=== PATIENT | female | born 1960 | race Two or more races ===

== ENCOUNTER 2024-06-29 12:47 | Emergency (ER) | payer OTHER ==
[~2024-06-29] VITALS: Ht 154.9 cm; Wt 63.5 kg
[2024-06-29] MEDS ORDERED: FAMOTIDINE/PF INJ 20 MG/2 ML VIAL IV ONE (14:44)
[2024-06-29] MEDS ORDERED: MAG HYDROX/AL HYDROX/SIMETH 30 ML UDC ONE (14:44)
[2024-06-29] MEDS ORDERED: KETOROLAC TROMETHAMINE 15 MG/ML VIAL ONE (14:44)
[2024-06-29] MEDS ORDERED: LIDOCAINE VISCOUS 2% UD 15 ML UDC ONE (14:45)
[2024-06-29 14:50] LABS: BASOPHILS % (AUTO) 0.4 % (0.0-2.0); HEMATOCRIT 35 % (33-45); HEMOGLOBIN 12.1 g/dL (11.5-14.8); LYMPHOCYTES # (AUTO) 1.3 K/uL (0.8-4.8); LYMPHOCYTES % (AUTO) 12.9 % (20.0-44.0); MEAN CORPUSCULAR HEMOGLOBIN 31 PG (26.0-33.0); MEAN CORPUSCULAR HGB CONC 34 g/dl (31.0-36.0); MEAN CORPUSCULAR VOLUME 91 fL (82-100); MONOCYTES # (AUTO) 0.7 K/uL (0.1-1.30); MONOCYTES % (AUTO) 6.9 % (2.0-12.0); NEUTROPHILS # (AUTO) 7.8 K/uL (1.8-8.9); NEUTROPHILS % (AUTO) 79.8 % (43.0-81.0); PLATELET COUNT (AUTO) 313 K/uL (150-450); RED BLOOD CELL COUNT(AUTO) 3.91 MIL/uL (4.0-5.2); RED CELL DISTRIBUTION WIDTH 13.5 % (11.5-15.0); WHITE BLOOD COUNT (AUTO) 9.8 K/uL (4.3-11.0)
[2024-06-29] MEDS: IV NS 0.9% 1,000 ML BAG IV ONE (14:57)
[2024-06-29] MEDS: FAMOTIDINE/PF INJ 20 MG/2 ML VIAL IV ONE (14:57)
[2024-06-29] MEDS: KETOROLAC TROMETHAMINE 15 MG/ML VIAL IV ONE (14:58)
[2024-06-29] MEDS: LIDOCAINE VISCOUS 2% UD 15 ML UDC MM ONE (14:59)
[2024-06-29] MEDS: MAG HYDROX/AL HYDROX/SIMETH 30 ML UDC PO ONE (14:59)
[2024-06-29 15:05] LABS: CALCIUM, SERUM 8.5 mg/dL (8.5-10.1); CREATININE 0.9 mg/dL (0.6-1.3); POTASSIUM 3.9 mmol/L (3.5-5.1)
[2024-06-29 15:11] LABS: ALBUMIN 3.5 g/dL (3.4-5.0); BILIRUBIN,DIRECT 0.1 mg/dL (0.0-0.2); BILIRUBIN,TOTAL 0.3 mg/dL (0.2-1.0); TOTAL PROTEIN, SERUM 8.1 g/dL (6.4-8.2)
[2024-06-29 15:45] LABS: APPEARANCE,URINE SLIGHTLY CLOUDY (CLEAR); BILIRUBIN,URINE NEGATIVE (NEGATIVE); BLOOD, URINE NEGATIVE Ery/uL (NEGATIVE); COLOR,URINE YELLOW (YELLOW); KETONES,URINE NEGATIVE (NEGATIVE); LEUKOCYTE ESTERASE ,URINE 1+ (NEGATIVE); NITRITE, URINE POSITIVE (NEGATIVE); PROTEIN,URINE 1+ mg/dl (NEGATIVE); UGLUCOSE 2+ mg/dL (NEGATIVE)
[2024-06-29] MEDS ORDERED: ONDA4TAB5 PO (15:48)
[2024-06-29] MEDS ORDERED: FAMO-131 PO (15:48)
[2024-06-29] MEDS ORDERED: ACET-2605 PO (15:48)
[2024-06-29 16:13] LABS: ADD URINE CULTURE YES; BACTERIA,URINE Many /HPF (None Seen); RBC,URINE 0-2 /HPF (0-2); WBC,URINE 81-100 /HPF (0-3)
[2024-06-29 16:14] LABS: SQUAMOUS EPITHELIAL CELL,UR Rare /HPF (None Seen)
[2024-06-29] MEDS ORDERED: CEPH-570 PO (16:24)
[2024-06-29] MEDS: CEFTRIAXONE 1 G in IV D5W 50 ML IV ONE (16:47)
[2024-06-29 18:03] VITALS: BP 109/70; TEMP 99.8; O2SAT 96
== END 2024-06-29 18:07 | disposition home or self-care (01) ==
LOC: ER 12:52
DX: J06.9 Acute upper respiratory infection, unspecified (principal); M79.10 Myalgia, unspecified site; R10.13 Epigastric pain; R00.0 Tachycardia, unspecified; R74.01 Elevation of levels of liver transaminase levels; I10 Essential (primary) hypertension; Z20.822 Contact with and (suspected) exposure to COVID-19
CPT/HCPCS: 99285; 96365; 76705; 96375; 71045; 96361; 87426; 93005; 85025; 80048; 87086; 83690; 80076; 81001; 36415; 87420; 82962; J3490; J0696; J7060; J7030; J1885